=== PATIENT | female | born 1970 | race Caucasian/White ===

== ENCOUNTER 2024-07-27 08:10 | Emergency (ER) | payer MEDICAID, OTHER ==
[~2024-07-27] VITALS: Ht 157.5 cm; Wt 81.0 kg
[2024-07-27 08:17] VITALS: O2SAT 98
[2024-07-27] MEDS: METOCLOPRAMIDE HCL 10MG TABLET PO ONE (10:21)
[2024-07-27] MEDS: KETOROLAC 30MG/ML VIAL IM ONE (10:21)
[2024-07-27] MEDS: ACETAMINOPHEN 325MG TABLET PO ONE (10:21)
[2024-07-27] MEDS ORDERED: NAPR-681 MT (11:25)
[2024-07-27 11:33] VITALS: BP 132/78; PULSE 93; RESP 18; TEMP 37.05852; O2SAT 98
== END 2024-07-27 11:34 | disposition home or self-care (01) ==
LOC: ER 08:30
DX: R51.9 Headache, unspecified (principal); Z98.890 Other specified postprocedural states
CPT/HCPCS: 99285; 70450; 96372; J8597; J1885

== ENCOUNTER 2024-10-13 17:59 | Emergency (ER) | payer OTHER ==
[~2024-10-13] VITALS: Ht 149.9 cm; Wt 64.9 kg
[~2024-10-13 17:59] MED LIST: NAPR-681 MT
[2024-10-13 18:07] VITALS: O2SAT 99
[2024-10-13 18:39] LABS: BASOPHILS % 0.5 % (0.0-2.0); EOSINOPHILS % 0.3 % (0.0-5.0); HEMATOCRIT. 41.6 % (36.0-48.0); HEMOGLOBIN. 14.2 g/dL (12.0-16.0); LYMPHOCYTES % 38.1 % (20.0-50.0); MEAN CORPUSCULAR HEMOGLOBIN 31.1 pg (28.0-32.0); MEAN CORPUSCULAR HGB CONC 34.1 g/dL (31.0-37.0); MEAN CORPUSCULAR VOLUME 91.4 fL (81.0-99.0); MEAN PLATELET VOLUME 7.3 fl (7.4-10.4); MONOCYTES % 3.1 % (2.0-8.0); PLATELET 364 x1000/uL (130-400); RED BLOOD CELL COUNT 4.55 mill/uL (4.2-5.4); RED CELL DISTRIBUTION WIDTH 13.1 % (11.6-14.6)
[2024-10-13 19:00] LABS: CHLORIDE 101 mEq/L (98-107); POTASSIUM 3.8 mEq/L (3.5-5.1); SODIUM 139 mEq/L (136-145)
[2024-10-13 19:01] LABS: CALCIUM 9.7 mg/dL (8.7-10.4); CARBON DIOXIDE 26 mEq/L (21-32)
[2024-10-13 19:06] LABS: CREATININE 0.6 mg/dL (0.6-1.0); GLUCOSE 99 mg/dL (70-105); UREA NITROGEN BLOOD 14 mg/dL (9-23)
[2024-10-13 21:51] LABS: ALANINE AMINOTRANSFERASE 50 IU/L (10-49); ALBUMIN 4.6 g/dL (3.2-4.8); ASPARTATE AMINOTRANSFERASE 25 IU/L (<34); BILIRUBIN DIRECT 0.2 mg/dL (<=3.0); BILIRUBIN TOTAL 0.8 mg/dL (0.1-1.0)
[2024-10-13 21:53] LABS: PROTHROMBIN TIME 10.3 sec (9.6-11.0)
[2024-10-13] MEDS ORDERED: ONDA-239 PO (23:03)
[2024-10-13] MEDS: ACETAMINOPHEN 325MG TABLET PO STA (23:18)
[2024-10-13] MEDS: ONDANSETRON 4MG ODT PO STA (23:18)
[2024-10-13 23:28] VITALS: BP 151/91; PULSE 80; RESP 18; TEMP 36.9; O2SAT 99
[2024-10-13 23:49] LABS: CLARITY URINE CLEAR (CLEAR); COLOR URINE YELLOW (YELLOW); GLUCOSE URINE NEGATIVE (NEGATIVE); KETONES URINE NEGATIVE (NEGATIVE); LEUKOCYTE ESTERASE URINE 1+ (NEGATIVE); NITRITE URINE NEGATIVE (NEGATIVE); OCCULT BLOOD URINE NEGATIVE (NEGATIVE); PROTEIN URINE NEGATIVE (NEGATIVE); UROBILINOGEN URINE 0.2 E.U./dL (0.2-1.0)
[2024-10-14 04:56] LABS: SQUAMOUS EPITHELIAL CELL URINE 1+ /lpf (RARE/1+)
[2024-10-14 05:01] LABS: BACTERIA URINE TRACE; RBC URINE 0-2 /hpf (0-2)
== END 2024-10-13 23:28 | disposition home or self-care (01) ==
LOC: ER 18:08
DX: T45.1X1A Poisoning by antineoplastic and immunosuppressive drugs, accidental (unintentional), initial encounter (principal); M19.90 Unspecified osteoarthritis, unspecified site; Z98.890 Other specified postprocedural states; Z79.1 Long term (current) use of non-steroidal anti-inflammatories (NSAID); Y92.89 Other specified places as the place of occurrence of the external cause
CPT/HCPCS: 99284; 80076; 80048; 81003; 85025; 85610; 36415; 93005; Q0162